=== PATIENT | female | born 2000 | race Caucasian/White ===

== ENCOUNTER 2021-04-19 18:02 | Emergency (ER) | payer OTHER, SELFPAY ==
[2021-04-19 18:29] VITALS: BP 120/67; PULSE 94; RESP 18; TEMP 36.9; O2SAT 100
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
[2021-04-19 20:31] VITALS: BP 116/62; PULSE 87; RESP 16; O2SAT 99
== END 2021-04-19 20:32 | disposition home or self-care (01) ==
PROVIDERS: Emergency Provider Emergency Medicine
DX: S01.511A Laceration without foreign body of lip, initial encounter (principal); W51.XXXA Accidental striking against or bumped into by another person, initial encounter; Y93.45 Activity, cheerleading
CPT/HCPCS: 99282